=== PATIENT | male | born 1950 ===

== ENCOUNTER 2023-09-02 13:01 | Day surgery (SDC) | payer MEDICARE ==
[2023-09-02] VITALS (8 sets, daily range): BP systolic 149–172; BP diastolic 80–96; PULSE 52–71; RESP 16; TEMP 98.6; O2SAT 92–99
[~2023-09-02] VITALS: Ht 175.3 cm; Wt 103.7 kg
[2023-09-02] MEDS ORDERED: diphenhydrAMINE 25mg capsule PO PRN (13:35)
[2023-09-02] MEDS ORDERED: normal saline 1,000 ML IV SCH (13:35)
[2023-09-02] MEDS ORDERED: LORazepam 0.5 MG tablet PO PRN (13:35)
[2023-09-02 13:56] LABS: BASOPHILS # (AUTO) 0.1 X10'3 (0-0.2); BASOPHILS % (AUTO) 0.8 % (0-1); EOSINOPHILS # (AUTO) 0.2 X10'3 (0-0.9); EOSINOPHILS % (AUTO) 2.1 % (0-6); LYMPHOCYTES # (AUTO) 1.5 X10'3 (1.1-4.8); LYMPHOCYTES % (AUTO) 21.3 % (21-51); MEAN CORPUSCULAR HEMOGLOBIN 30.6 PG (27.0-31.0); MEAN CORPUSCULAR VOLUME 89.9 FL (78-98); MEAN PLATELET VOLUME 8.3 FL (7.4-10.4); MONOCYTES # (AUTO) 0.5 X10'3 (0-0.9); MONOCYTES % (AUTO) 7.7 % (2-12); NEUTROPHILS # (AUTO) 4.8 X10'3 (1.8-7.7); NEUTROPHILS % (AUTO) 68.1 % (42-75); PLATELET COUNT 201 X10'3 (140-440); RED BLOOD COUNT 5.22 X10'6 (4.70-6.10); RED CELL DISTRIBUTION WIDTH 14.7 % (11.5-14.5); WHITE BLOOD COUNT 7.1 X10'3 (4.5-11.0)
[2023-09-02 14:06] LABS: ANION GAP 4 (8-16); BLOOD UREA NITROGEN 21 MG/DL (7-18); BUN/CREATININE RATIO 15.1 (10.0-20.0); CALCIUM 8.9 MG/DL (8.5-10.1); CHLORIDE 104 MMOL/L (99-107); CREATININE 1.39 MG/DL (0.60-1.10); GLUCOSE 95 MG/DL (70-104); POTASSIUM 3.8 MMOL/L (3.5-5.1); SODIUM 136 MMOL/L (135-145); TOTAL CARBON DIOXIDE 27.7 MMOL/L (24-32); eCRCL 48 ML/MIN; eGFR 50 ML/MIN
[2023-09-02 14:07] LABS: PROTHROMBIN TIME 10.3 SECONDS (9.0-12.0)
[2023-09-02] MEDS ORDERED: LISI20TA28 PO (14:24)
[2023-09-02] MEDS ORDERED: LEVO125T8 PO (14:24)
[2023-09-02] MEDS ORDERED: LIDOcaine 1% (10mg/ml) 2ml vial ONE (16:09)
[2023-09-02] MEDS ORDERED: midazolam 1 mg/ML 2ml injection ONE (16:09)
[2023-09-02] MEDS ORDERED: verapamil 2.5 mg/ml inj IV ONE (16:09)
[2023-09-02] MEDS ORDERED: fentaNYL/PF 50MCG/1 ML 2ML syringe ONE (16:10)
[2023-09-02] MEDS ORDERED: iohexol 350MG/ML 100ml bottle IV ONE (16:10)
[2023-09-02] MEDS ORDERED: heparin 1,000unit/ml 10ml vial 10 ML ONE (16:10)
[2023-09-02] MEDS ORDERED: lisinopril 20mg tablet PO ONE (17:25)
[2023-09-02] MEDS ORDERED: proCHLORperazine 10 MG/2 ml inj IV PRN (17:25)
[2023-09-02] MEDS ORDERED: HYDROcodone/acetaminophen 10/325mg tab PO PRN (17:25)
[2023-09-02] MEDS ORDERED: HYDROcodone/acetaminophen 5mg/325mg tablet PO PRN (17:25)
[2023-09-02] MEDS ORDERED: ondansetron/PF 4mg/2ml inj IV PRN (17:25)
[2023-09-02] MEDS ORDERED: OXAZEpam 15mg capsule PO PRN (17:25)
== END 2023-09-02 18:55 | disposition home or self-care (01) ==
LOC: SSTAY O 13:01
PROVIDERS: ATTEND Student in an Organized Health Care Education/Training Program
DX: R07.89 Other chest pain (principal); I25.10 Atherosclerotic heart disease of native coronary artery without angina pectoris; I10 Essential (primary) hypertension; E78.5 Hyperlipidemia, unspecified; I65.29 Occlusion and stenosis of unspecified carotid artery; Z79.899 Other long term (current) drug therapy
CPT/HCPCS: 36415; 80048; 85025; 85610; 93005; 93458; J1644; J2250; J3010; J3490; J7030; Q9967; A6258; A6402; C1894